=== PATIENT | male | born 2000 | race Caucasian/White ===

== ENCOUNTER 2022-05-02 15:51 | Emergency (ER) | payer OTHER ==
[~2022-05-02] VITALS: Ht 167.6 cm; Wt 59.0 kg
[2022-05-02 15:58] VITALS: BP_SYST 130
--- NOTE | 2022-05-02 16:26 | NUR ---
Patient brought in by self from home. Chief complaint RUQ pain 5/10 pain scale. Pain for past 24 hours. Pt denies SOB, denies chest pain. Pt states sharp pain on inspiration and positional. Pt states antacids not effective. Pt states appendectomy in history.
--- NOTE | 2022-05-02 16:30 | NUR ---
ER at bedside examining patient.
--- NOTE | 2022-05-02 16:34 | NUR ---
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
--- NOTE | 2022-05-02 16:38 | NUR ---
ER at bedside examining patient.
[2022-05-02 16:55] LABS: BASOPHILS % (AUTO) 0.3 % (0.0-2.0); EOSINOPHILS % (AUTO) 0.2 % (0.0-4.0); HEMATOCRIT 42.9 % (36-54); HEMOGLOBIN 15.2 g/dL (14.0-18.0); LYMPHOCYTES % (AUTO) 13.3 % (20.5-51.5); MEAN CORPUSCULAR HEMOGLOBIN 30 pg (27-31); MEAN CORPUSCULAR HGB CONC 36 % (32-36); MEAN CORPUSCULAR VOLUME 85 fL (79.0-98.0); MONOCYTES # (AUTO) 0.3 K/uL (0.0-1.0); NEUTROPHILS # (AUTO) 6.4 K/uL (1.8-7.7); NEUTROPHILS % (AUTO) 82.2 % (40.0-70.0); PLATELET COUNT (AUTO) 254 K/uL (130-430); RED BLOOD CELL COUNT(AUTO) 5.05 MIL/uL (4.2-6.2); RED CELL DISTRIBUTION WIDTH 13.2 % (9.0-15.0); WHITE BLOOD COUNT (AUTO) 7.8 K/uL (4.8-10.8)
[2022-05-02 17:09] LABS: ALBUMIN 4.6 g/dL (3.4-4.8); CREATININE 0.88 mg/dL (0.55-1.30); TOTAL BILIRUBIN 1.7 mg/dL (0.0-1.0)
[2022-05-02 17:14] LABS: CALCIUM 9.3 mg/dL (8.4-11.0)
[2022-05-02] MEDS ORDERED: HAL5 PO (17:30)
[2022-05-02] MEDS ORDERED: BENZ1TAB82 PO (17:30)
--- NOTE | 2022-05-02 17:39 | NUR ---
Patient given written and verbal discharge instructions and verbalizes understanding. ER MD discussed with patient the results and treatment provided. Patient in stable condition. ID arm band removed. Rx of Haldol and Cogentin given. Patient educated on pain management and to follow up with PMD. Opportunity for questions provided and answered. Medication side effect fact sheet provided.
[2022-05-02 17:44] VITALS: BP_SYST 128
== END 2022-05-02 17:44 | disposition home or self-care (01) ==
LOC: SED 15:51
DX: R10.13 Epigastric pain (principal); R11.2 Nausea with vomiting, unspecified; F12.90 Cannabis use, unspecified, uncomplicated; F17.200 Nicotine dependence, unspecified, uncomplicated; Z79.899 Other long term (current) drug therapy
CPT/HCPCS: 36415; 74018; 80053; 83690; 85025; 99284